=== PATIENT | female | born 1995 | race Caucasian/White ===

== ENCOUNTER 2018-12-08 16:20 | Emergency (ER) | payer OTHER, SELFPAY ==
[2018-12-08 16:32] VITALS: BP 144/89; PULSE 61; RESP 16; TEMP 36.6; O2SAT 97
--- NOTE | 2018-12-08 16:50 | W.ED.GENAD ---
Discharge Plan Disposition Patient Disposition: HOME Condition: Good Discharge Details Chief Complaint: Urinary Clinical Impression: UTI (urinary tract infection) Primary Care Provider: [facility] Provider: Tanvir Arrieta Home Meds and New Rx's Prescriptions: New sulfamethoxazole-trimethoprim [Bactrim DS] 800-160 mg tablet 1 tab PO BID 5 Days Qty: 10 RF: 0 No Action citalopram 20 mg Tablet 20 mg PO DAILY RF: 0 bupropion HCl [Wellbutrin XL] 150 mg Tablet Extended Release 24 Hr 150 mg PO DAILY RF: 0 Discharge Instructions Instructions: Urinary Tract Infection in Women (ED) Additional Instructions: You demonstrate evidence of a urinary tract infection. Please take the antibiotic as directed. If you notice any worsening of your symptoms, or any new symptoms such as vomiting, diarrhea, fever, chills, shortness of breath, chest pain, numbness, weakness, or fainting , please return immediately to the emergency department for reevaluation. Please follow up with your primary care provider as soon as possible for reassessment and reevaluation. As always, it was a pleasure participating in your medical care today. Medical Decision Making This is a pleasant 23-year-old female who presents for urinary frequency and burning that started this morning. She is noticed a small amount of blood in conjunction with this. She does have a history of urinary tract infections in the past and states that this feels identical to that. She has had a kidney stone in the distant past and states that this feels nothing like that. Exam demonstrates a nontender abdomen, she tolerates p.o. well, no evidence of an acute surgical process in her abdomen. Signs and symptoms and clinical history appearing consistent with urolithiasis. We will evaluate for potential infection, and reassess. 5 2 9 PM Urinalysis results are notably obfuscated by Pyridium, however RBCs and WBCs are greater than 50. Clinically the patient signs and symptoms clinically consistent with a UTI. We will hold off on CT imaging at this time. She will be given her first dose of Bactrim here, and a prescription for home use. We discussed red flags which to return. I have extensively reviewed the treatment plan and discharge instructions with the patient and their family. I have addressed all patient concerns at this time. The patient and family was made aware of what symptoms to monitor for that would warrant a return to the emergency department. Discussed the plan with the patient and family, they demonstrate verbal understanding and agreement with our assessment and plan at this time. HPI General Date/Time Provider Initiated Documentation: 12/08/18 16:24. HPI Narrative: This is a 23-year-old female with no significant past medical history except for a previous kidney stone when she was 15, who presents today for symptoms of a UTI. She states that since this morning she has noticed burning when she pees and increased urinary frequency with a small amount of blood. She states that with her previous urinary tract infection she has had blood as well. She denies any flank pain, abdominal pain, nausea vomiting or diarrhea. She denies any vaginal discharge, or pelvic pain. She does have a small amount of suprapubic pressure in the area of the bladder. She did take Pyridium today and notes that her urine has turned orange. She denies any other complaints at this time. She does state that her signs and symptoms feel identical to her previous UTIs. She denies any history of recent STDs. Related Data Home Medications Medication Instructions Recorded Confirmed bupropion HCl [Wellbutrin XL] 150 mg PO DAILY 12/08/18 12/08/18 citalopram 20 mg PO DAILY 12/08/18 12/08/18 sulfamethoxazole-trimethoprim 1 tab PO BID 5 Days #10 tab 12/08/18 [Bactrim DS] Previous Rx's Medication Instructions Recorded sulfamethoxazole-trimethoprim 1 tab PO BID 5 Days #10 tab 12/08/18 [Bactrim DS] Allergies Allergy/AdvReac Type Severity Reaction Status Date / Time amoxicillin Allergy Unverified 12/08/18 16:34 Penicillins Allergy Unverified 12/08/18 16:35 General Stated Complaint: Urinary RAUL: 4 Review of Systems Review of Systems All systems reviewed & are unremarkable except as noted in HPI and below PFSH Social History Smoking/Tobacco Use Status: Never Substance use type: does not use Exam Narrative Exam Narrative: 1.Const: Well-nourished, Well-developed, appearing stated age 2.Eyes: PERRL, no conjunctival injection, and symmetrical lids. 3.ENT: Atraumatic external nose and ears. Moist MM. Neck: Symmetric, trachea midline, No thyromegaly. 4.CVS: +S1/S2, No murmurs or gallops. Peripheral pulses 2+ and equal in all extremities. Brisk capillary refill in all extremities. 5.RESP: Unlabored respiratory effort. Clear to auscultation bilaterally. No wheezes rales or rhonchi 6.GI: Soft, Nontender/Nondistended, No hepatosplenomegaly. No guarding or rebound. No pain at McBurney's point, negative Govea sign, negative obturator and psoas sign. Minimal pressure over the suprapubic region. No CVA tenderness. 7.MSK: Normocephalic/Atraumatic, Extremities w/o deformity or ttp No cyanosis or clubbing, Normal movement of all extremities 8.Skin: Warm, Dry. No rashes or lesions. 9.Neuro: vp ad products and planning II-XII grossly intact. Sensation grossly intact, no focal neurologic deficits. 10.Psych: (AAO) x3. Appropriate mood and affect Course Vital Signs Temperature 36.6 C 12/08/18 16:32 Pulse 61 12/08/18 16:32 Respiratory Rate 16 12/08/18 16:32 Blood Pressure 144/89 H 12/08/18 16:32 Pulse Oximetry 97 12/08/18 16:32 Temperature 36.6 C 12/08/18 16:32 Temperature Source Skin 12/08/18 16:32 Pulse 61 12/08/18 16:32 Respiratory Rate 16 12/08/18 16:32 Respiratory Effort Non-Labored 12/08/18 16:32 Blood Pressure 144/89 H 12/08/18 16:32 Blood Pressure Position Sitting 12/08/18 16:32 Pulse Oximetry 97 12/08/18 16:32 Oxygen Delivery Method Room Air 12/08/18 16:32 Oxygen Flow Rate 0 12/08/18 16:32 Pain Level 0 12/08/18 16:43 Lab/Test Results Lab/Test Results: POC- Test(urine) Negative
[2018-12-08 17:16] LABS: Clarity Sl Cloudy (Clear)
[2018-12-08 17:17] LABS: Specific Gravity 1.022 (1.005-1.025)
[2018-12-08 17:21] LABS: WBC >50 HPF (0-5)
[2018-12-08 17:22] LABS: RBC >50 (0-2)
[2018-12-08] MEDS: Sulfameth/Trimeth DS TAB 1 TAB PO (17:31)
[2018-12-08 17:35] LABS: Bacteria Many HPF (Negative); C & S Indicated? Yes
== END 2018-12-08 17:33 | disposition home or self-care (01) ==
PROVIDERS: Emergency Provider Student in an Organized Health Care Education/Training Program
DX: N39.0 Urinary tract infection, site not specified (principal); B96.20 Unspecified Escherichia coli [E. coli] as the cause of diseases classified elsewhere
CPT/HCPCS: 87077; 99283; 81003; 81015; 87086; 87186